=== PATIENT | female | born 1995 | race Hispanic/Latino ===

== ENCOUNTER 2025-05-05 13:14 | Emergency (ER) | payer SELFPAY ==
[2025-05-05 13:40] LABS: Glucose, Urine (Dipstick) Negative (Negative); Leukocyte Negative (Negative); Protein, Urine (Dipstick) Negative (Neg-Trace); Specific Gravity, Urine 1.020 (1.005-1.030)
[2025-05-05 13:43] LABS: Pregnancy Test - Urine (BHCG) Negative (Negative)
[2025-05-05 13:44] LABS: Pregu Control Background? CLEAR/WHITE (CLR/WHITE); Pregu Control Bar Appear? YES (CONTROL BAR)
[2025-05-05 13:52] LABS: Bacteria/HPF 2+ HPF (None Seen); CAUTI Indications for Culture Pelvic or flank pain; Mucous/LPF 1+ LPF (<2+); RBC/HPF 0-3 HPF (0-3); WBC/HPF 0-3 HPF (0-3)
[2025-05-05 13:53] LABS: Urine Culture Reflex No No
[2025-05-05] MEDS ORDERED: Amoxicillin/Potassium Clav 875 MG TAB ONE (14:04)
== END 2025-05-05 14:14 | disposition home or self-care (01) ==
LOC: NAV ERS 13:14
DX: N64.4 Mastodynia (principal)
CPT/HCPCS: 81001; 81025; 99283